=== PATIENT | male | born 1995 | race Caucasian/White ===

== ENCOUNTER 2019-09-12 14:12 | Emergency (ER) | payer BC ==
[2019-09-12 14:55] VITALS: BP 153/111
--- NOTE | 2019-09-12 15:26 | UC ---
Throat Pain/Nasal Hector HPI - HPI Summary HPI Summary: 23 y/o male presents to the urgent care c/o uvula changing in size for the past week. Pt reports he first noticed his uvula was elongated w/o any pain or swelling about 1 week ago. Then it resolved , but yesterday he felt again his uvula was touching is tongue. This morning he tried to tocuh it an gagged and then one episode of vomiting. He had had Hx of strep in the past and sometimes his uvula becomes bigger, but this time sore throat is minimum 1/10 and denies fever, eating something different or taking new medications. He denies fever, URI symptoms, difficulty breathing or throat swelling, stridoe, dyspagia, Dizziness, SOB, chest pain, abdominal pain, N/V/D, rash, neck pain or ear pain. Pt has been eating well and drinking fluids w/o any difficulty Pt denies taking any medication to alleviate symptoms. - History of Current Complaint Chief Complaint: UCGeneralIllness Stated Complaint: SORE THROAT Time Seen by Provider: 09/12/19 15:08 Hx Obtained From: Patient Onset/Duration: Gradual Onset, Lasting Weeks - 1 week of uvula swollen on and off, Still Present - returned today Severity: Mild Pain Intensity: 1 Pain Scale Used: 0-10 Numeric Cough: None Associated Signs & Symptoms: Negative: Dysphagia, Hoarseness, Sinus Discomfort, Nasal Discharge, Fever, Rash - Epiglottits Risk Factors Epiglottis Risk Factors: Negative - Allergies/Home Medications Allergies/Adverse Reactions: Allergies Allergy/AdvReac Type Severity Reaction Status Date / Time No Known Allergies Allergy Verified 09/12/19 14:55 Home Medications: Home Medications predniSONE 20 mg TAB [Deltasone 20 MG TAB*] 20 mg PO DAILY #11 tab 09/12/19 [Rx] PMH/Surg Hx/FS Hx/Imm Hx Previously Healthy: Yes - Pt denies PMHX - Surgical History Surgical History: None - Family History Known Family History: Positive: Hypertension - Social History Occupation: Student Lives: With Family Alcohol Use: Weekly Substance Use Type: None Smoking Status (MU): Never Smoked Tobacco Review of Systems All Other Systems Reviewed And Are Negative: Yes Constitutional: Positive: Negative Skin: Positive: Negative Eyes: Positive: Negative ENT: Positive: Sore Throat - mild and uvula swollen at times Respiratory: Positive: Negative Cardiovascular: Positive: Negative Gastrointestinal: Positive: Negative Genitourinary: Positive: Negative Motor: Positive: Negative Neurovascular: Positive: Negative Musculoskeletal: Positive: Negative Neurological/Mental Status: Positive: Negative Psychological: Positive: Negative Is Patient Immunocompromised?: No Physical Exam - Summary Physical Exam Summary: VITAL SIGNS: Reviewed. GENERAL: Patient is a well developed and nourished male who is sitting comfortably in the examining table. Patient is not in any acute respiratory distress. HEAD AND FACE: No signs of trauma. No ecchymosis, hematomas or skull depressions. No sinus tenderness. EYES: PERRLA, EOMI x 2, No injected conjunctiva, no nystagmus. No photophobia. EARS: Hearing grossly intact. Ear canals and tympanic membranes are within normal limits. MOUTH: Positive pharynx with mild erythema, no exudates, No B/L tonsillar enlargement , no exudate. Uvula in midline mildly red, mildly elongated. No swollen clear PND NECK: Supple, trachea is midline, Positive anterior cervical lymphadenopathy, no JVD, no carotid bruit, no c-spine tenderness, neck with full ROM. No meningeal signs, no Kernig's or brudzinskis signs. CHEST: Symmetric, no tenderness at palpation LUNGS: Clear to auscultation bilaterally. No wheezing or crackles. CVS: Regular rate and rhythm, S1 and S2 present, no murmurs or gallops appreciated. ABDOMEN: Soft, non-tender. No signs of distention. No rebound no guarding, and no masses palpated. Bowel sounds are normal. EXTREMITIES: FROM in all major joints, no edema, no cyanosis or clubbing. NEURO: Alert and oriented x 3. No acute neurological deficits. Pt follows commands. SKIN: Dry and warm Triage Information Reviewed: Yes Vital Signs: Initial Vital Signs Temp 99.0 F 09/12/19 14:50 Pulse 89 09/12/19 14:50 Resp 16 09/12/19 14:50 BP 153/111 09/12/19 14:50 Pulse Ox 100 09/12/19 14:50 Throat Pain/Nasal Course/Dx - Course Course Of Treatment: 23 y/o male presents to the urgent care c/o uvula changing in size for the past week. Pt reports he first noticed his uvula was elongated w/o any pain or swelling about 1 week ago. Then it resolved , but yesterday he felt again his uvula was touching is tongue. This morning he tried to tocuh it an gagged and then one episode of vomiting. He had had Hx of strep in the past and sometimes his uvula becomes bigger, but this time sore throat is minimum 1/10 and denies fever, eating something different or taking new medications. He denies fever, URI symptoms, difficulty breathing or throat swelling, stridoe, dyspagia, Dizziness, SOB, chest pain, abdominal pain, N/V/D, rash, neck pain or ear pain or any recreation drug use. Pt has been eating well and drinking fluids w/o any difficulty Pt denies taking any medication to alleviate symptoms. Hx obtained. Pt w/ mild uvulitis of examination. Rapid strep ordered, result: negative. Pt's uvulitis possible viral in nature. Throat culture ordered to r/o any abnormality. Pt will be notified of any abnormal result for further management. Pt Rx Prednisone PO taper dose as directed below in case if swelling develops. Advised to take ibuprofen PO to alleviates symptoms of pain. Advised on hand washing to avoid spreading. Pt advised to rest, eat well and avoid strenuous exercise. Strongly advised if symptoms worsen w/ throat swelling, difficulty breathing, stridor, or respiratory distress to go immediately to the ER for further management. Pt's BP is elevated today advised to decrease salt in diet, monitor BP and f/u with PCP if BP continues to be elevated for further management. D/C instructions explained. Pt understood and agreed w/plan of care. - Differential Dx/Diagnosis Differential Diagnosis/HQI/PQRI: Epiglottitis, Laryngitis, Mononucleosis, Pharyngitis, Sinusitis, Tonsillitis, URI, Other - uvulitis Provider Diagnosis: Uvulitis, Acute viral pharyngitis, Elevated BP without diagnosis of hypertension Discharge ED - Sign-Out/Discharge Documenting (check all that apply): Patient Departure - D/C home All imaging exams completed and their final reports reviewed: No Studies - Discharge Plan Condition: Stable Disposition: HOME Prescriptions: predniSONE 20 mg TAB [Deltasone 20 MG TAB*] 20 mg PO DAILY #11 tab Patient Education Materials: Uvulitis (ED) Forms: *School Release Referrals: Bruce Cotton MD [Primary Care Provider] - 2 Days Additional Instructions: 1- Please take Prednisone PO taper dose as directed to alleviate symptoms. 2-Please take ibuprofen PO q6-8hrs prn as instructed after meals to alleviate pain and swelling. Increase fluid intake, eat well, rest and avoid strenuous exercise 3-If symptoms worsen w/ throat swelling, stridor, muffle voice, difficulty breathing please go immediately to the ER for further management. Otherwise f/ u w/ your PCP in 2-3 days if not improvement of symptoms. 4- Your BP is elevated today advised to decrease salt in diet, monitor BP and f/ u with PCP for further management. 5- Throat culture was sent to lab to r/o any abnormality. You will be notified of any abnormality - Billing Disposition and Condition Condition: STABLE Disposition: Home
== END 2019-09-12 16:01 | disposition home or self-care (01) ==
LOC: UCCORT 14:12
DX: K12.2 Cellulitis and abscess of mouth (principal); J02.8 Acute pharyngitis due to other specified organisms; R03.0 Elevated blood-pressure reading, without diagnosis of hypertension
CPT/HCPCS: 87070; 87651; 99202; G0463

== ENCOUNTER 2019-09-25 16:23 | Emergency (ER) | payer BC ==
[2019-09-25 17:32] VITALS: BP 143/94
--- NOTE | 2019-09-25 18:32 | UC ---
Hand/Wrist HPI - HPI Summary HPI Summary: 23yo male s/p jamming injury to right index finger yesterday He is right handed no hx prior injury - History Of Current Complaint Chief Complaint: UCUpperExtremity Stated Complaint: RIGHT FINGER INJURY Time Seen by Provider: 09/25/19 18:26 Hx Obtained From: Patient Onset/Duration: Sudden Onset, Lasting Hours Severity Initially: Moderate Severity Currently: Mild Pain Intensity: 2 Pain Scale Used: 0-10 Numeric Character Of Pain: Dull Aggravating Factor(s): Movement Alleviating Factor(s): Rest Associated Signs And Symptoms: Positive: Swelling, Bruising Related History: Dominant Hand Right Hands: 1 - pain/swelling - Allergies/Home Medications Allergies/Adverse Reactions: Allergies Allergy/AdvReac Type Severity Reaction Status Date / Time environmental Allergy Eyes Uncoded 09/25/19 17:33 Itchy/Swollen/Red/Watery shellfish Allergy scratchy Uncoded 09/25/19 17:34 throat Home Medications: Home Medications Albuterol HFA INHALER* [Ventolin HFA Inhaler*] 2 puff INH Q6H PRN 09/25/19 [ History Confirmed 09/25/19] Cetirizine* [ZyrTEC 10 MG TAB*] 10 mg PO DAILY PRN 09/25/19 [History Confirmed 09/25/19] PMH/Surg Hx/FS Hx/Imm Hx Previously Healthy: Yes - Surgical History Surgical History: None - Family History Known Family History: Positive: Hypertension - Social History Alcohol Use: Weekly Alcohol Amount: 25 Substance Use Type: None Smoking Status (MU): Never Smoked Tobacco Review of Systems All Other Systems Reviewed And Are Negative: Yes Constitutional: Positive: Negative Skin: Positive: Bruising Eyes: Positive: Negative ENT: Positive: Negative Respiratory: Positive: Negative Cardiovascular: Positive: Negative Gastrointestinal: Positive: Negative Genitourinary: Positive: Negative Motor: Positive: Negative Neurovascular: Positive: Negative Musculoskeletal: Positive: Arthralgia - RIF PIP Neurological/Mental Status: Positive: Negative Psychological: Positive: Negative Physical Exam Triage Information Reviewed: Yes Appearance: Well-Appearing, No Pain Distress, Well-Nourished Vital Signs: Initial Vital Signs Temp 98.3 F 09/25/19 17:22 Pulse 89 09/25/19 17:22 Resp 18 09/25/19 17:22 BP 143/94 09/25/19 17:22 Pulse Ox 99 09/25/19 17:22 Vital Signs Reviewed: Yes Eyes: Positive: Conjunctiva Clear ENT: Positive: Hearing grossly normal. Negative: Nasal congestion, Nasal drainage, Trismus, Muffled voice, Hoarse voice Dental Exam: Normal Neck: Positive: Supple Respiratory: Positive: Lungs clear, Normal breath sounds, No respiratory distress, No accessory muscle use Cardiovascular: Positive: RRR, No Murmur Musculoskeletal: Positive: Other: - see image Neurological: Positive: Alert Psychological Exam: Normal Skin Exam: Normal Diagnostics - Radiology No standard instances Radiology Interpretation Completed By: Radiologist Summary of Radiographic Findings: IMPRESSION: NONDISPLACED AVULSION FRACTURE AT THE PROXIMAL ANTERIOR CORNER OF THE RIGHT INDEX FINGER MIDDLE PHALANX. Hand/Wrist Course/Dx - Differential Dx/Diagnosis Provider Diagnosis: Volar plate injury, IP (interphalangeal), finger Discharge ED - Sign-Out/Discharge Documenting (check all that apply): Patient Departure All imaging exams completed and their final reports reviewed: Yes - Discharge Plan Condition: Stable Disposition: HOME Patient Education Materials: Finger Fracture (ED) Referrals: Yury BEGUM,Bruce [Primary Care Provider] - Marek Correia MD [Medical Doctor] - 1 Week Additional Instructions: splint elevate ice advil or aleve - Billing Disposition and Condition Condition: STABLE Disposition: Home
== END 2019-09-25 18:47 | disposition home or self-care (01) ==
LOC: UCCORT 16:23
DX: S62.650A Nondisplaced fracture of middle phalanx of right index finger, initial encounter for closed fracture (principal); S63.430A Traumatic rupture of volar plate of right index finger at metacarpophalangeal and interphalangeal joint, initial encounter; W23.0XXA Caught, crushed, jammed, or pinched between moving objects, initial encounter; Y92.9 Unspecified place or not applicable; Z91.09 Other allergy status, other than to drugs and biological substances; Z91.013 Allergy to seafood
CPT/HCPCS: 73140; 99212; G0463